=== PATIENT | male | born 1995 | race Caucasian/White ===

== ENCOUNTER 2025-04-24 19:11 | Emergency (ER) | payer OTHER, SELFPAY ==
[~2025-04-24] VITALS: Ht 180.3 cm; Wt 81.9 kg
[2025-04-24 20:39] LABS: Hematocrit 43.0 % (41.0-53.0); Hemoglobin 14.7 g/dL (13.5-17.5); Mean Corpuscular Hemoglobin 31.1 pg (28.0-32.0); Mean Corpuscular Volume 91.1 fL (80.0-100.0); Nucleated Red Blood Cells % 0.0 %
[2025-04-24 20:50] LABS: Chloride 106 mmol/L (98-107); Potassium 4.1 mmol/L (3.5-5.1); Sodium 141 mmol/L (136-145)
[2025-04-24 20:51] LABS: Anion Gap 7 (5-15); Calcium 8.9 mg/dL (8.7-10.4); Carbon Dioxide 28 mmol/L (20-31)
[2025-04-24 20:56] LABS: BUN/Creatinine Ratio 11.4 (10.0-20.0); Blood Urea Nitrogen 13 mg/dL (9-23)
[2025-04-24 20:58] LABS: Glucose 112 mg/dL (74-106)
[2025-04-24 21:11] LABS: Urine Protein, UAD 2+ (Negative)
[2025-04-24] MEDS ORDERED: BACDST PO (21:27)
[2025-04-24] MEDS ORDERED: cefTRIAXone W LIDOCAINE 1 GM IM IM ONE (21:30)
--- NOTE | 2025-04-24 21:40 | ED.PDOC ---
General HPI Comments 30-year-old male, history of UTIs, presents with chief complaint of dysuria, hematuria, and urgency. Patient endorses on two day history of dysuria, physician onset of hematuria urine urgency, today. States having any he had urge to pee every 10 seconds. He is sexually active with one partner, who has tested regular. Last UTI was 1-1/2 month ago, which he was treated with antibiotics then. any further acute symptoms such as flank pain or fever. Chief Complaint: Urinary Time Seen by MD: 21:30 Reviewed notes: Nurses Notes, Medications, Allergies Allergies: Coded Allergies: NO KNOWN ALLERGIES (Unverified , 04/24/25) Home Meds Active Scripts Sulfamethoxazole W/Trimethopri (Bactrim Ds Tablet) 1 Tab Tb, 1 TAB PO BID for 10 Days, #20 TAB Prov:VALDEZ BARRERA MD 04/24/25 Information Source: Patient Mode of Arrival: Ambulatory Past Medical History PAST MEDICAL HISTORY: UTI'S Surgical History: Denies all surgeries Family History Family History: Unknown All Other Systems: Reviewed and Negative (As per HPI) Physical Exam General Appearance: No Apparent Distress, Normal HEENT: Normal ENT Inspection, Pharynx Normal, TMs Normal Neck: Full Range of Motion, Non-Tender, Normal, Normal Inspection Respiratory: Chest Non-Tender, Lungs Clear, No Accessory Muscle Use, No Respiratory Distress, Normal Breath Sounds Cardiovascular: No Edema, No JVD, No Murmur, No Gallop, Normal Peripheral Pulses, Regular Rate/Rhythm Breast Exam: Deferred Gastrointestinal: No Organomegaly, Non Tender, No Pulsatile Mass, Normal Bowel Sounds, Soft Genitalia: Deferred Pelvic: Deferred Rectal: Deferred Extremities: No calf tenderness, Normal capillary refill, Normal inspection, Normal range of motion, Non-tender, No pedal edema Musculoskeletal : Apperance: Normal Neurologic: Alert, 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 Was a procedure done?: No Differential Diagnosis Kidney stone (Female): N/A Kidney stone (Male): N/A Penile/Scrotal: N/A Urinary Problem (Male): Epididymitis, Urethritis, Urolithiasis, UTI X-Ray, Labs, Meds, VS Vital Signs Date Time Temp Pulse Resp B/P (MAP) Pulse Ox O2 Delivery O2 Flow Rate FiO2 04/24/25 21:45 98.6 67 19 115/70 (85) 99 98.6 04/24/25 21:45 67 19 99 Room Air 04/24/25 19:12 99.0 81 16 115/71 98 99.0 Lab Test 04/24/25 20:53 04/24/25 20:20 Range/Units Urine Color Light-orange Yellow Urine Clarity Ex.turbid Clear Urine pH 6.0 5.0-9.0 Urine Specific [place] 1.032 1.001-1.035 Urine Protein 2+ H Negative Urine Ketones Trace Negative Urine Blood 3+ H Negative /uL Urine Nitrite Negative Negative Urine Bilirubin Negative Negative Urine Urobilinogen 2 H Negative mg/dL Urine Leukocyte Esterase 3+ Negative /uL Urine RBC 861 0 - 3 /hpf Urine Microscopic WBC 1159 H 0-3 /HPF Urine Squamous Epithelial Cells None seen <5 /hpf Urine Calcium Oxalate Crystals Mod None Seen Urine Bacteria None seen None Seen /hpf Urine Mucus Few None Seen Urine Glucose Normal Normal mg/dL White Blood Count 17.2 H 4.4-10.8 10^3/uL Red Blood Count 4.72 4.5-5.90 10^6/uL Hemoglobin 14.7 13.5-17.5 g/dL Hematocrit 43.0 41.0-53.0 % Mean Corpuscular Volume 91.1 80.0-100.0 fL Mean Corpuscular Hemoglobin 31.1 28.0-32.0 pg Mean Corpuscular Hemoglobin Concent 34.1 32.0-36.0 g/dL Red Cell Distribution Width 13.0 11.8-14.3 % Platelet Count 264 140-450 10^3/uL Mean Platelet Volume 9.8 6.9-10.8 fL Neutrophils (%) (Auto) 79.2 37.0-80.0 % Lymphocytes (%) (Auto) 9.9 L 10.0-50.0 % Monocytes (%) (Auto) 5.7 0.0-12.0 % Eosinophils (%) (Auto) 4.8 0.0-7.0 % Basophils (%) (Auto) 0.4 0.0-2.0 % Neutrophils # (Auto) 13.6 H 1.6-8.6 10 ^3/uL Lymphocytes # (Auto) 1.7 0.4-5.4 10 ^3/uL Monocytes # (Auto) 1.0 0-1.3 10 ^3/uL Eosinophils # (Auto) 0.8 0-0.8 10 ^3/uL Basophils # (Auto) 0.1 0-0.2 10 ^3/uL Nucleated Red Blood Cells 0.0 % Sodium Level 141 136-145 mmol/L Potassium Level 4.1 3.5-5.1 mmol/L Chloride Level 106 98-107 mmol/L Carbon Dioxide Level 28 20-31 mmol/L Anion Gap 7 5-15 Blood Urea Nitrogen 13 9-23 mg/dL Creatinine 1.14 0.700-1.30 mg/dL Glomerular Filtration Rate Calc 88 >90 mL/min BUN/Creatinine Ratio 11.4 10.0-20.0 Serum Glucose 112 H 74-106 mg/dL Calcium Level 8.9 8.7-10.4 mg/dL Current Medications Medications (Trade) Dose Ordered Sig/Torey Route Start Time Stop Time Status Last Admin Azithromycin (Zithromax Tablet) 1,000 mg ONCE ONCE PO 04/24/25 21:30 04/24/25 21:31 DC 04/24/25 21:45 Ceftriaxone Sodium (Rocephin) 1,000 mg ONCE ONCE IM 04/24/25 21:45 04/24/25 21:46 DC 04/24/25 21:45 Time of 1ST Reevaluation: 22:40 Reevaluation 1ST: Unchanged Patient Education/Counseling: Diagnosis, Treatment, Need For Follow Up Family Education/Counseling: No Family Present SEPSIS Sepsis Screen Date sepsis recognized/suspect: Apr 24, 2025 Time Sepsis recognized/suspect: 1911 Recent Procedure: No On Antibiotic Therapy: No Respiratory Rate >20: No Heart Rate >90: No Temp<36 C (96.8 F) or >38.3 C: No SBP <90 or MAP <65 mmHG: No New Acute Mental Status Change: No Is the patient on CPAP, BIPAP,: No Vital Signs Date Time Temp Pulse Resp B/P (MAP) Pulse Ox O2 Delivery O2 Flow Rate FiO2 04/24/25 21:45 98.6 67 19 115/70 (85) 99 98.6 04/24/25 21:45 67 19 99 Room Air 04/24/25 19:12 99.0 81 16 115/71 98 99.0 Laboratory Tests Test 04/24/25 20:20 White Blood Count 17.2 10^3/uL (4.4-10.8) H Medications Medications Dose Ordered Sig/Torey Route Start Time Stop Time Status Last Admin Dose Admin Azithromycin 1,000 mg ONCE ONCE PO 04/24/25 21:30 04/24/25 21:31 DC 04/24/25 21:45 Ceftriaxone Sodium 1,000 mg ONCE ONCE IM 04/24/25 21:45 04/24/25 21:46 DC 04/24/25 21:45 Departure 1 Departure Time of Disposition: 00:30 Impression: Primary Impression: UTI (urinary tract infection) Additional Impression: Dysuria Disposition: HOME / SELF CARE / HOMELESS Condition: Stable Additional Instructions: Discharge Note: Drink plenty of fluids. Follow up with your primary Dr. Take your prescriptions as ordered. If your condition becomes worse call and follow up with your primary DrDona for instructions or return to the ER if needed. Thank you for visiting [facility]. e-Prescriptions Sulfamethoxazole W/Trimethopri (Bactrim Ds Tablet) 1 Tab Tb 1 TAB PO BID for 10 Days, #20 TAB Prov: VALDEZ BARRERA MD 04/24/25 Discharged With: Self Critical Care Note Critical Care Time?: No Stability Stability form required: No Heart Score Heart Score: Heart Score Response (Comments) Value History N/A 0 EKG N/A 0 Age N/A 0 Risk Factors N/A 0 Troponin N/A 0 Total 0 I personally scribed for VALDEZ BARRERA MD ([email or web address]) on 04/24/25 at 21:40. Electronically submitted by Michele Downey [email or web address]). VALDEZ BARRERA MD Apr 24, 2025 21:40
[2025-04-24 21:45] VITALS: BP 115/70; PULSE 67; RESP 19; TEMP 98.6; O2SAT 99
[2025-04-24] MEDS: cefTRIAXone SOD 1,000 MG VL IM ONE (21:45)
[2025-04-24] MEDS: AZITHROMYCIN 250 MG TAB PO ONE (21:45)
[2025-04-24] MEDS: LIDOCAINE 1% HCL (LOCAL ANESTH.) INJ 20ML MDV ONE (21:51)
== END 2025-04-24 21:56 | disposition home or self-care (01) ==
LOC: ER 19:11
DX: N39.0 Urinary tract infection, site not specified (principal); R30.0 Dysuria; Z87.440 Personal history of urinary (tract) infections; Z79.899 Other long term (current) drug therapy
CPT/HCPCS: 36415; 80048; 81001; 85025; 96372; 99283; J0696; J2003